=== PATIENT | female | born 1950 | race Caucasian/White ===

== ENCOUNTER → 2016-09-04 | Outpatient (CLI) | payer MEDICARE, OTHER ==
[~2016-09-04] MED LIST: ADV250INH INH; ALBU17IN INH; LEVO25TA5 PO; OMEP40CA2 PO; RALO1TAB PO; SING10TA32 PO; ZOCO20TA PO; ZYRT10TA2 PO
[2016-09-04 11:34] LABS: BASO % 0.7 % (0.0-1.0); EOS # 0.2 K/mm3 (0.0-0.50); EOS % 3.4 % (0.0-3.0); LARGE UNSTAINED CELL # 0.1 K/mm3 (0.0-0.4); LARGE UNSTAINED CELL % 1.5 % (0.0-4.0); LYMPH % 19.3 % (24.0-44.0); MEAN CORPUSCULAR HEMOGLOBIN 29.9 pg (27.0-33.0); MEAN CORPUSCULAR HGB CONC 32.8 g/dl (32.0-36.5); MEAN CORPUSCULAR VOLUME 90.9 fl (80.0-96.0); MONO # 0.3 K/mm3 (0.0-0.8); MONO % 5.8 % (0.0-5.0); NEUTROPHILS # 3.7 K/mm3 (1.8-7.7); NEUTROPHILS % 69.3 % (36.0-66.0); PLATELET COUNT, AUTOMATED 280 k/mm3 (150-450); WHITE BLOOD COUNT 5.4 K/mm3 (4.0-10.0)
--- NOTE | 2016-09-04 12:15 | REP ---
Chest two views HISTORY: Preop Comparison: 10/27/2015 Linear density is present in the left lower lobe consistent with scar. The right lung is clear. . The heart is normal in size. The pulmonary vasculature is normal in appearance. The bony structure is intact. IMPRESSION: Left lower lobe scar. Signed by Feliberto Randall MD 09/04/2016 12:07 P
[2016-09-04 12:20] LABS: ALBUMIN 3.9 GM/DL (3.2-5.2); ALBUMIN/GLOBULIN RATIO 1.22 (1.00-1.93); ALKALINE PHOSPHATASE 103 U/L (45-117); ALT/SGPT 34 U/L (12-78); ANION GAP 10 MEQ/L (8-16); AST/SGOT 20 U/L (15-37); BILIRUBIN,TOTAL 0.5 MG/DL (0.2-1.0); BLOOD UREA NITROGEN 20 MG/DL (7-18); CALCIUM LEVEL 9.5 MG/DL (8.8-10.2); CARBON DIOXIDE LEVEL 28 MEQ/L (21-32); CHLORIDE LEVEL 105 MEQ/L (98-107); CREATININE FOR GFR 0.91 MG/DL (0.55-1.02); GLOMERULAR FILTRATION RATE > 60.0 (>45); GLUCOSE, FASTING 97 MG/DL (80-110); POTASSIUM SERUM 3.7 MEQ/L (3.5-5.1); SODIUM LEVEL 143 MEQ/L (136-145); TOTAL PROTEIN 7.1 GM/DL (6.4-8.2)
--- NOTE | 2016-09-04 12:37 | ECGEPIP ---
Stationary ECG Study [facility] Test Date: 2016-09-04 Pat Name: DARYN PEREZ Department: Room: - Gender: F Fire Engine Operator: AURA : 1950 Requested By: Neri Voss Order Number: [id number] Reading MD: Janie Reyes Measurements Intervals [place] Rate: 71 P: 66 CA: 133 QRS: 34 QRSD: 90 T: 59 QT: 355 QTc: 387 Interpretive Statements SINUS RHYTHM WITH SINUS ARRHYTHMIA INFERIOR ST ABNORMALITY NEW C/W 07/12/11 Electronically Signed On 09-04-2016 12:36:46 EST by Janie Reyes
== END ==
LOC: M LAB 10:46
PROVIDERS: ATTEND Podiatrist
DX: Z01.818 Encounter for other preprocedural examination (principal)

== ENCOUNTER → 2016-09-14 | Day surgery (SDC) | payer MEDICARE, OTHER ==
[~2016-09-14] VITALS: Ht 157.5 cm; Wt 68.0 kg
[~2016-09-14] MED LIST changes: +BUPIVACAINE HCL 0.5% 10 ML VIAL As Ordered ONE; +LIDOCAINE 2% INJ 100 MG/5 ML SDV (FOR ANES.) As Ordered ONE; +LIDOCAINE 2% MDV 20 ML VIAL XX ONE; +LR 1,000 ML IV SCH; +MIDAZOLAM INJ 2 MG/2 ML VIAL (J2250) As Ordered ONE; +ONDANSETRON 4MG/2ML VIAL (J2405) As Ordered ONE; +PHENYLephrine HCL 500 MCG/5 ML (100MCG/ML) SYRINGE (J2370) As Ordered ONE; +PROPOFOL 200 MG/20 ML VIAL As Ordered ONE; +VERA27.5; +ceFAZolin SOD 1 GM in D5W MINI-BAG PLUS 50 ML IV ONE; +dexameTHASONE 4 MG/ML 1ML VIAL (J1100) As Ordered ONE; +fentaNYL 100 MCG/2 ML INJECTION (J3010) As Ordered ONE
[2016-09-14 13:20] VITALS: BP 120/89
--- NOTE | 2016-09-14 13:32 | REP ---
Left foot series: Four views obtained postop. History: Postop. Findings: Views taken through overlying dressing demonstrate that the patient is status post osteotomies and pinning of the second, third and fourth PIP joints. Metallic screws are seen in the second, third, fourth and fifth metatarsals consistent with previous osteotomies here. There is also resection of the distal end of the proximal phalanx of the fifth toe. No pin is seen in the fifth digit. 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 Impression: Postoperative changes in the second through fifth digits as above. Signed by Marcello Tom MD 09/14/2016 02:05 P
--- NOTE | 2016-09-16 09:30 | RO ---
DATE OF PROCEDURE: 09/14/2016 PREOPERATIVE DIAGNOSIS: Hammertoes with crossover toes 2, 3, 4 and 5, left foot. POSTOPERATIVE DIAGNOSIS: Hammertoes with crossover toes 2, 3, 4 and 5. PROCEDURES PERFORMED: 1. Shortening 2nd metatarsal osteotomy with internal screw fixation. 2. Shortening 3rd metatarsal osteotomy with slight lateral displacement with internal screw fixation. 3. 4th metatarsal osteotomy with medial displacement with internal screw fixation. 4. Tailor's bunionectomy with distal V osteotomy, internal screw fixation. 5. Proximal interphalageal joint arthroplasty with K-wire fixation, 0.045 times one, 2nd toe, left foot. 6. Proximal interphalangeal joint arthroplasty with wire fixation 0.045 times one, 3rd toe left foot. 7. Proximal interphalangeal joint arthroplasty 4th toe, with hosiery mater wire fixation, 4th toe left foot. 8. Proximal interphalangeal joint arthroplasty 5th toe, left foot. SURGEON: Neri Voss DPM [employer] REMOVAL SUPERVISOR: None. HEMOSTASIS: Ankle pneumatic tourniquet at 220 mmHg for 105 minutes. DESCRIPTION OF OPERATION: On 09/14/2016, this 66-year-old white female was taken from her hospital room to the operating room, placed on the operating room table in supine position. Following the induction of IV sedation, local and regional anesthesia, the left lower extremity was prepped and draped in the usual aseptic manner. The left lower extremity was elevated 45 degrees from the horizontal plane for the purpose of preoperative exsanguination of the limb. During this 3 minute time period, ankle pneumatic tourniquet was applied just proximal to the medial and lateral malleolus well padded site. To further exsanguinate the limb, a Ruddy's esmarch bandage was placed circumferentially extending from the digits to the distal edge of the ankle pneumatic tourniquet. The ankle pneumatic tourniquet was rapidly inflated to 220 mmHg for the purpose of intraoperative hemostasis. The left lower extremity was returned to the operating room table, sterile draping was place and the following procedure was performed: PROXIMAL INTERPHALANGEAL JOINT ARTHROPLASTY WITH EXTERNAL WIRE FIXATION, 2ND DOES LEFT FOOT: Attention was directed to the patient's 2nd toe where an incision was made from the metatarsal phalangeal joint to just distal to the proximal interphalangeal joint. The incision was deepened through the subcutaneous tissues and all coursing venous tributaries were identified, underscored, clamped, cut, ligated, and electrocoagulated as necessary. A transverse tenotomy and capsulotomy was performed at the level of the proximal interphalangeal joint and the extensor expansion and ortega was released into the level of the metatarsal phalangeal joint. The medial and lateral collateral ligaments were then resected and utilizing a power saw, an osteotomy was performed from the anatomical neck of the proximal phalanx from dorsal to plantar and medial to lateral through and through. Utilizing a power saw, the cartilage was removed from the base of the middle phalanx. This was extirpated from the wound. The second toe was noted to be in a considerably medial position and a release of the capsule was then performed releasing the entire medial structures, reducing the medial position of the toe. The following procedure was then performed: 2ND METATARSAL OSTEOTOMY WITH INTERNAL SCREW FIXATION 2.5 X 14 MM TIMES ONE LEFT FOOT: Attention was directed to the patient's 2nd metatarsal where a linear periosteal incision was placed above the periosteum of the neck of the second metatarsal. Utilizing a power saw a Keke osteotomy was performed through the head of the 2nd metatarsal paralleling the plantar surface of the foot. The bone was shortened approximately 4 mm and fixated with a 2.5 x 14 mm right DART-FIRE compression screw. Redundant cortical spike was then rongeured off and smoothed with a hand held rasp. The wound was flushed with copious amounts of dilute bacitracin, neomycin and polymyxin B solution. The 2nd toe was then repaired with a K-wire driven through the middle and distal phalanx, through the proximal phalanx and the toe was held in a slightly over corrected plantar position and retrograded into the metatarsal. The wire was bent and a protective cap was placed over the distal end of the K-wire. Attention was then directed to the patient 's 3rd toe of the left where the following procedure was performed: PROXIMAL INTERPHALANGEAL JOINT ARTHROPLASTY WITH EXTERNAL WIRE FIXATION 3RD TOE LEFT FOOT: The procedure performed on the 2nd toe was now performed on the 3rd toe without variations or deletions, the only exception being that of anatomical location. Attention was then directed to the 3rd metatarsal of the left foot where the following procedure was performed: 3RD METATARSAL OSTEOTOMY WITH INTERNAL SCREW FIXATION 2.5 MM X 12 MM TIMES ONE, LEFT FOOT: Attention was directed to the patient's 3rd metatarsal left foot where the procedure performed on the 2nd metatarsal was now performed on the 3rd metatarsal with the following variation: The toe was shorted as well as placed in a lateral direction. There was no other variations or deletions. Attention was hen directed to the patient's 4th toe of the left foot where the following procedure was performed: PROXIMAL INTERPHALANGEAL JOINT ARTHROPLASTY WITH EXTERNAL WIRE FIXATION 0.045 TIMES ONE, 4TH TOE LEFT FOOT: Attention was directed to the patient's 4th toe of the left foot where the procedure performed on the 2nd toe was now performed on the 4th toe without variations or deletions, the only exception being that of anatomical location. Attention was then directed to the patient's 4th metatarsal where the following procedure was performed: SHORTENING 4TH METATARSAL OSTEOTOMY WITH MEDIAL DISPLACEMENT, 4TH METATARSAL LEFT FOOT: The procedure performed on the 2nd metatarsal was now performed on the 4th metatarsal with the following variation: The metatarsal was displaced in a medial direction. No other variations or deletions. Attention was then directed to the patient's 5th toe where the procedure was performed: PROXIMAL INTERPHALANGEAL JOINT ARTHROPLASTY 5TH TOE LEFT FOOT: Attention was directed to the patient's 5th toe of the left foot. The procedure performed on the 2nd toe was now performed on the 5th toe with the following variation: No K-wire was used to stabilize the 5th toe. Attention was then directed to the patient's 5th metatarsal where the following procedure was performed: TAILOR'S BUNIONECTOMY WITH DISTAL V OSTEOTOMY AND INTERNAL SCREW FIXATION 2.5 X 18 MM TIMES ONE, LEFT FOOT: Attention was directed to the patient's left foot where there was noted to be tailors bunion deformity. A lateral linear incision was then placed over the lateral aspect of the 5th metatarsal phalangeal joint. The incision was deepened through subcutaneous tissues and all coursing venous tributaries were identified, underscored, clamped, cut, ligated, and electrocoagulated as necessary. A linear capsulotomy was then performed over the 5th metatarsal phalangeal joint capsule. The hypertrophied lateral eminence was then osteotomized from distal to proximal, through and through. A V shaped osteotomy was then performed in the neck of the 5th metatarsal with a long plantar and short dorsal wing. The capital fragment was transposed in a medial direction, approximately 30%, fixated with 2.5 x 18 mm compression screw. The osteotomy was noted to be stable in all three cardinal planes. The redundant cortical spike was then osteotomized from dorsal to plantar, through and through. The lateral surface was rasped to smooth contour with a handheld rasp. The wound was flushed with copious amounts of dilute bacitracin, neomycin, and polymyxin B solution. Attention was directed towards closure where the capsular structures were coapted and maintained utilizing #3-0 Vicryl in a simple interrupted type fashion. The subcutaneous tissues were coapted and maintained utilizing #4-0 Monocryl in a simple interrupted type fashion. The skin incision was coapted and maintained utilizing #4-0 Prolene in a simple interrupted and horizontal mattress type fashion. Following the completion of the surgical procedure, 4 mg of dexamethasone sodium phosphate was instilled proximal to the surgical site. Attention was then directed towards bandaging where a sterile compressive bandage was applied consisting of Adaptic, 4x4's, 4x4 splints, Kaylin, Kerlix, and Coban. The ankle pneumatic tourniquet was rapidly deflated and instantaneous capillary filling time was noted in digits 1-5 of the patient's right foot. The patient apparently having tolerated the surgical procedure well was taken from the OR to the recovery room with vital signs stable, patient afebrile, and for further monitoring by the anesthesia department. All surgical specimens removed during the operative procedure were sent to pathology for gross and microscopic examination. Postoperative instructions will be given upon discharge.
== END | disposition home or self-care (01) ==
LOC: M SDC 07:29
PROVIDERS: ATTEND Podiatrist
DX: M20.42 Other hammer toe(s) (acquired), left foot (principal); E03.9 Hypothyroidism, unspecified; E78.5 Hyperlipidemia, unspecified; Z88.1 Allergy status to other antibiotic agents; Z79.899 Other long term (current) drug therapy
CPT/HCPCS: 28110; 28285; 28308; 73630; 88300; 97116; C1776; G8978; G8979; G8980; J0690; J1100; J2250; J2370; J2405; J3010

== ENCOUNTER → 2017-01-14 | Outpatient (CLI) | payer MEDICARE, OTHER ==
[~2017-01-14] MED LIST changes: -BUPIVACAINE HCL 0.5% 10 ML VIAL As Ordered ONE; -LIDOCAINE 2% INJ 100 MG/5 ML SDV (FOR ANES.) As Ordered ONE; -LIDOCAINE 2% MDV 20 ML VIAL XX ONE; -LR 1,000 ML IV SCH; -MIDAZOLAM INJ 2 MG/2 ML VIAL (J2250) As Ordered ONE; -ONDANSETRON 4MG/2ML VIAL (J2405) As Ordered ONE; -PHENYLephrine HCL 500 MCG/5 ML (100MCG/ML) SYRINGE (J2370) As Ordered ONE; -PROPOFOL 200 MG/20 ML VIAL As Ordered ONE; -ceFAZolin SOD 1 GM in D5W MINI-BAG PLUS 50 ML IV ONE; -dexameTHASONE 4 MG/ML 1ML VIAL (J1100) As Ordered ONE; -fentaNYL 100 MCG/2 ML INJECTION (J3010) As Ordered ONE
[2017-01-14 10:48] LABS: ALBUMIN 3.7 GM/DL (3.2-5.2); ALBUMIN/GLOBULIN RATIO 1.37 (1.00-1.93); ALKALINE PHOSPHATASE 96 U/L (45-117); ALT/SGPT 20 U/L (12-78); ANION GAP 8 MEQ/L (8-16); AST/SGOT 15 U/L (15-37); BILIRUBIN,TOTAL 0.3 MG/DL (0.2-1.0); BLOOD UREA NITROGEN 16 MG/DL (7-18); CALCIUM LEVEL 8.8 MG/DL (8.8-10.2); CARBON DIOXIDE LEVEL 28 MEQ/L (21-32); CHLORIDE LEVEL 107 MEQ/L (98-107); CHOLESTEROL LEVEL 160 MG/DL (<200); CREATININE FOR GFR 0.68 MG/DL (0.55-1.02); GLOMERULAR FILTRATION RATE > 60.0 (>45); GLUCOSE, FASTING 85 MG/DL (80-110); MAGNESIUM LEVEL 2.5 MG/DL (1.8-2.4); POTASSIUM SERUM 4.4 MEQ/L (3.5-5.1); SODIUM LEVEL 143 MEQ/L (136-145); TOTAL PROTEIN 6.4 GM/DL (6.4-8.2); TRIGLYCERIDES LEVEL 85 MG/DL (<150)
== END ==
LOC: M WUC 08:23
PROVIDERS: ATTEND Internal Medicine
DX: E78.00 Pure hypercholesterolemia, unspecified (principal); K21.9 Gastro-esophageal reflux disease without esophagitis; E03.9 Hypothyroidism, unspecified

== ENCOUNTER → 2017-08-20 | Outpatient (CLI) | payer MEDICARE, OTHER ==
[2017-08-20 10:25] LABS: BASO % 0.8 % (0.0-1.0); EOS # 0.2 10^3/uL (0.0-0.50); EOS % 4.3 % (0.0-3.0); HEMATOCRIT 41.2 % (36.0-47.0); HEMOGLOBIN 13.2 g/dl (12.0-16.0); IMMATURE GRANULOCYTE % 0.2 % (0-3.0); LYMPH # 1.3 10^3/uL (1.5-4.5); LYMPH % 25.8 % (24.0-44.0); MEAN CORPUSCULAR HEMOGLOBIN 25.7 pg (27.0-33.0); MEAN CORPUSCULAR VOLUME 80.2 fl (80.0-96.0); MONO # 0.5 10^3/uL (0.0-0.8); MONO % 9.6 % (0.0-5.0); NEUTROPHILS # 2.9 10^3/uL (1.8-7.7); NEUTROPHILS % 59.3 % (36.0-66.0); PLATELET COUNT, AUTOMATED 265 10^3/uL (150-450); RED BLOOD COUNT 5.14 10^6/uL (4.00-5.40); RED CELL DISTRIBUTION WIDTH 16.7 % (11.5-14.5); WHITE BLOOD COUNT 4.9 10^3/uL (4.0-10.0)
[2017-08-20 10:42] LABS: ANION GAP 7 MEQ/L (8-16); BLOOD UREA NITROGEN 20 MG/DL (7-18); CALCIUM LEVEL 8.6 MG/DL (8.8-10.2); CARBON DIOXIDE LEVEL 30 MEQ/L (21-32); CHLORIDE LEVEL 107 MEQ/L (98-107); GLOMERULAR FILTRATION RATE > 60.0 (>45); GLUCOSE, FASTING 92 MG/DL (70-100); POTASSIUM SERUM 4.1 MEQ/L (3.5-5.1); SODIUM LEVEL 144 MEQ/L (136-145)
== END ==
LOC: M LAB 09:40
DX: Z01.818 Encounter for other preprocedural examination (principal); T84.223A Displacement of internal fixation device of bones of foot and toes, initial encounter; L90.5 Scar conditions and fibrosis of skin; I51.7 Cardiomegaly
CPT/HCPCS: 71046

== ENCOUNTER 2017-08-28 08:39 | Day surgery (SDC) | payer MEDICARE, OTHER ==
[2017-08-28] MEDS: LR 1,000 ML IV ×2 (08:45→09:30)
[2017-08-28] MEDS ORDERED: LIDOCAINE 2% INJ 100 MG/5 ML SDV (FOR ANES.) As Ordered (11:09)
[2017-08-28] MEDS ORDERED: PROPOFOL 200 MG/20 ML VIAL As Ordered (11:09)
[2017-08-28] MEDS ORDERED: MIDAZOLAM INJ 2 MG/2 ML VIAL (J2250) As Ordered (11:10)
[2017-08-28] MEDS ORDERED: fentaNYL 100 MCG/2 ML INJECTION (J3010) As Ordered (11:10)
[2017-08-28] MEDS: LIDOCAINE 2% MDV 20 ML VIAL As Ordered (12:45)
[2017-08-28] MEDS: dexameTHASONE 4 MG/ML 1ML VIAL (J1100) As Ordered (12:45)
[2017-08-28] MEDS: BUPIVACAINE HCL 0.5% 30 ML VIAL As Ordered (12:45)
[2017-08-28] MEDS: BACITRACIN PWD 50,000 UNITS VIAL As Ordered (12:45)
[2017-08-28] MEDS: NEOSPORIN GU IRRIG 20 ML VIAL As Ordered (12:45)
[2017-08-28] MEDS ORDERED: LR 1,000 ML IV (13:45)
[2017-08-28] MEDS ORDERED: NORCO, ANEXSIA 5/325MG TABLET (HYDROcodone/ACETAMINOPHEN) PO (13:45)
[2017-08-28] MEDS ORDERED: ONDANSETRON 4MG/2ML VIAL (J2405) IV (13:45)
== END 2017-08-28 14:00 | disposition home or self-care (01) ==
LOC: M SDC 08:39
DX: T84.84XA Pain due to internal orthopedic prosthetic devices, implants and grafts, initial encounter (principal); T84.223A Displacement of internal fixation device of bones of foot and toes, initial encounter; E03.9 Hypothyroidism, unspecified; M12.9 Arthropathy, unspecified; J45.909 Unspecified asthma, uncomplicated; M72.2 Plantar fascial fibromatosis; M20.62 Acquired deformities of toe(s), unspecified, left foot; M20.42 Other hammer toe(s) (acquired), left foot; Z88.1 Allergy status to other antibiotic agents; Z91.048 Other nonmedicinal substance allergy status; Z79.899 Other long term (current) drug therapy; Z78.0 Asymptomatic menopausal state; X58.XXXA Exposure to other specified factors, initial encounter; Y93.89 Activity, other specified; Y92.89 Other specified places as the place of occurrence of the external cause; Y99.8 Other external cause status
CPT/HCPCS: 20670

== ENCOUNTER → 2018-01-11 | Outpatient (CLI) | payer MEDICARE, OTHER ==
[2018-01-11 17:26] LABS: ALBUMIN 3.7 GM/DL (3.2-5.2); ALBUMIN/GLOBULIN RATIO 1.16 (1.00-1.93); ALKALINE PHOSPHATASE 101 U/L (45-117); ALT/SGPT 24 U/L (12-78); ANION GAP 9 MEQ/L (8-16); AST/SGOT 18 U/L (7-37); BILIRUBIN,TOTAL 0.4 MG/DL (0.2-1.0); BLOOD UREA NITROGEN 18 MG/DL (7-18); CALCIUM LEVEL 8.5 MG/DL (8.8-10.2); CARBON DIOXIDE LEVEL 26 MEQ/L (21-32); CHLORIDE LEVEL 107 MEQ/L (98-107); CHOLESTEROL LEVEL 178 MG/DL (<200); CHOLESTEROL RISK RATIO 2.225 (<5); CREATININE FOR GFR 0.71 MG/DL (0.55-1.30); GLOMERULAR FILTRATION RATE > 60.0 (>45); GLUCOSE, FASTING 93 MG/DL (70-100); HDL CHOLESTEROL 80 MG/DL (>40); LDL CHOLESTEROL 87.8 MG/DL (<100); MAGNESIUM LEVEL 2.1 MG/DL (1.8-2.4); NON-HDL-C 98 MG/DL; POTASSIUM SERUM 4.1 MEQ/L (3.5-5.1); SODIUM LEVEL 142 MEQ/L (136-145); TOTAL PROTEIN 6.9 GM/DL (6.4-8.2); TRIGLYCERIDES LEVEL 51 MG/DL (<150)
== END ==
LOC: M WUC 08:32
DX: K21.9 Gastro-esophageal reflux disease without esophagitis (principal); E78.00 Pure hypercholesterolemia, unspecified; E03.9 Hypothyroidism, unspecified
CPT/HCPCS: 83735

== ENCOUNTER 2018-05-02 11:01 | Day surgery (SDC) | payer MEDICARE, OTHER ==
[~2018-05-02 11:01] MED LIST changes: -ADV250INH INH; -ALBU17IN INH; -LEVO25TA5 PO; +LIDOCAINE 2% INJ 100 MG/5 ML SDV (FOR ANES.) As Ordered; -OMEP40CA2 PO; +PROPOFOL 200 MG/20 ML VIAL As Ordered; -RALO1TAB PO; -SING10TA32 PO; -VERA27.5; -ZOCO20TA PO; -ZYRT10TA2 PO
[2018-05-02] MEDS: NS 1,000 ML IV (12:45)
== END 2018-05-02 13:00 | disposition home or self-care (01) ==
LOC: M OPP 11:01
DX: Z12.11 Encounter for screening for malignant neoplasm of colon (principal); Z86.010 Personal history of colon polyps; D12.4 Benign neoplasm of descending colon; D12.3 Benign neoplasm of transverse colon; K64.8 Other hemorrhoids; R12 Heartburn; K21.9 Gastro-esophageal reflux disease without esophagitis; E03.9 Hypothyroidism, unspecified; J45.909 Unspecified asthma, uncomplicated; M12.9 Arthropathy, unspecified; L71.0 Perioral dermatitis; Z79.899 Other long term (current) drug therapy; Z88.8 Allergy status to other drugs, medicaments and biological substances; Z88.0 Allergy status to penicillin; Z91.048 Other nonmedicinal substance allergy status
CPT/HCPCS: 45385

== ENCOUNTER → 2018-06-02 | Outpatient (CLI) | payer MEDICARE, OTHER ==
[2018-06-02 13:25] LABS: CHOLESTEROL LEVEL 287 MG/DL (<200); CHOLESTEROL RISK RATIO 3.776 (<5); HDL CHOLESTEROL 76 MG/DL (>40); LDL CHOLESTEROL 190 MG/DL (<100); NON-HDL-C 211 MG/DL; TRIGLYCERIDES LEVEL 105 MG/DL (<150)
== END ==
LOC: M WUC 09:08
DX: E78.00 Pure hypercholesterolemia, unspecified (principal); E03.9 Hypothyroidism, unspecified
CPT/HCPCS: 84443

== ENCOUNTER → 2018-10-06 | Outpatient (CLI) | payer MEDICARE, OTHER ==
[~2018-10-06] MED LIST changes: +ADV250INH INH; +ALBU17IN INH; +CALC1TAB63 PO; +CENTCHW4 PO; +FISH120016 PO; +FLON1SPR; +LEVO25TA5 PO; +LEVO75TA4 PO; -LIDOCAINE 2% INJ 100 MG/5 ML SDV (FOR ANES.) As Ordered; +META0.52 PO; +METRCRM TOP; +OMEP40CA2 PO; +OSTETAB2 PO; -PROPOFOL 200 MG/20 ML VIAL As Ordered; +RALO1TAB PO; +REFR0.5D8 OU; +SING10TA32 PO; +TURM500T PO; +VENTAER INH; +VERA27.5; +VITA100067 PO; +VITA50TA43 PO; +ZOCO20TA PO; +ZYRT10CA5 PO; +[UNRECOGNIZED DRUG - CODE]; +[UNRECOGNIZED DRUG - OTHER]
--- NOTE | 2018-10-06 10:59 | REP ---
BILATERAL FIRST DIGITS: Four views of right first digit performed. There is no fracture or dislocation. There is moderate narrowing with subchondral sclerosis of the joint between the trapezium and base of the first metacarpal. There is moderate diffuse narrowing of the distal interphalangeal joint with mild spurring and subchondral sclerosis. Four views of the left first digit demonstrate no fracture or dislocation. There is moderate narrowing at the joint between trapezium and base of first metacarpal with subchondral sclerosis. There is moderate narrowing of the distal interphalangeal joint with mild subchondral sclerosis. IMPRESSION: Arthritic changes as above. Electronically Signed by Jt Kaiser MD 10/06/2018 06:19 P
== END ==
LOC: M WUC 09:56
PROVIDERS: ATTEND Physician Assistant
DX: M19.049 Primary osteoarthritis, unspecified hand (principal)

== ENCOUNTER → 2019-01-12 | Outpatient (CLI) | payer MEDICARE, OTHER ==
[~2019-01-12] MED LIST changes: -OMEP40CA2 PO; +OMEP40CA97 PO
[2019-01-12 12:32] LABS: HEMATOCRIT 40.7 % (36.0-47.0); HEMOGLOBIN 12.9 g/dl (12.0-15.5); MEAN CORPUSCULAR HEMOGLOBIN 25.3 pg (27.0-33.0); MEAN CORPUSCULAR HGB CONC 31.7 g/dl (32.0-36.5); PLATELET COUNT, AUTOMATED 310 10^3/uL (150-450); RED BLOOD COUNT 5.09 10^6/uL (4.00-5.40); WHITE BLOOD COUNT 5.6 10^3/uL (4.0-10.0)
[2019-01-12 12:47] LABS: ALBUMIN 4.1 GM/DL (3.2-5.2); ALT/SGPT 102 U/L (12-78); BILIRUBIN,TOTAL 0.7 MG/DL (0.2-1.0); BLOOD UREA NITROGEN 23 MG/DL (7-18); CALCIUM LEVEL 9.3 MG/DL (8.8-10.2); CARBON DIOXIDE LEVEL 25 MEQ/L (21-32); CHLORIDE LEVEL 106 MEQ/L (98-107); CHOLESTEROL LEVEL 233 MG/DL (<200); CHOLESTEROL RISK RATIO 2.452 (<5); CREATININE FOR GFR 0.76 MG/DL (0.55-1.30); GLOMERULAR FILTRATION RATE > 60.0 (>45); GLUCOSE, FASTING 97 MG/DL (70-100); HDL CHOLESTEROL 95 MG/DL (>40); LDL CHOLESTEROL 127 MG/DL (<100); NON-HDL-C 138 MG/DL; SODIUM LEVEL 140 MEQ/L (136-145); TOTAL PROTEIN 7.3 GM/DL (6.4-8.2); TRIGLYCERIDES LEVEL 54 MG/DL (<150)
[2019-01-12 13:23] LABS: TOTAL 25(OH) VITAMIN D 66.9 NG/ML (30.0-100.0)
== END ==
LOC: M WUC 09:40
PROVIDERS: ATTEND Internal Medicine
DX: R71.8 Other abnormality of red blood cells (principal); E78.00 Pure hypercholesterolemia, unspecified; E03.9 Hypothyroidism, unspecified; M85.80 Other specified disorders of bone density and structure, unspecified site

== ENCOUNTER → 2019-01-29 | Outpatient (CLI) | payer MEDICARE, OTHER ==
[~2019-01-29] MED LIST changes: +OMEP40CA2 PO; -OMEP40CA97 PO
[2019-01-29 13:59] LABS: ALBUMIN 4.1 GM/DL (3.2-5.2); BILIRUBIN,DIRECT 0.1 MG/DL (0.0-0.2); BILIRUBIN,TOTAL 0.5 MG/DL (0.2-1.0); TOTAL PROTEIN 7.4 GM/DL (6.4-8.2)
== END ==
LOC: M WUC 09:01
PROVIDERS: ATTEND Internal Medicine
DX: R74.0 Nonspecific elevation of levels of transaminase and lactic acid dehydrogenase [LDH] (principal)

== ENCOUNTER → 2020-01-11 | Outpatient (CLI) | payer MEDICARE, OTHER ==
[~2020-01-11] MED LIST changes: -OMEP40CA2 PO; +OMEP40CA97 PO
[2020-01-11 13:39] LABS: HEMATOCRIT 44.6 % (36.0-47.0); HEMOGLOBIN 14.5 g/dl (12.0-15.5); MEAN CORPUSCULAR HEMOGLOBIN 30.1 pg (27.0-33.0); MEAN CORPUSCULAR HGB CONC 32.5 g/dl (32.0-36.5); MEAN CORPUSCULAR VOLUME 92.5 fl (80.0-96.0); PLATELET COUNT, AUTOMATED 236 10^3/uL (150-450); RED BLOOD COUNT 4.82 10^6/uL (4.00-5.40); WHITE BLOOD COUNT 4.5 10^3/uL (4.0-10.0)
[2020-01-11 14:06] LABS: ALBUMIN 3.9 GM/DL (3.2-5.2); ALT/SGPT 57 U/L (12-78); BILIRUBIN,TOTAL 0.4 MG/DL (0.2-1.0); BLOOD UREA NITROGEN 14 MG/DL (7-18); CALCIUM LEVEL 8.6 MG/DL (8.8-10.2); CARBON DIOXIDE LEVEL 25 MEQ/L (21-32); CHLORIDE LEVEL 108 MEQ/L (98-107); CHOLESTEROL LEVEL 199 MG/DL (<200); CHOLESTEROL RISK RATIO 2.618 (<5); CREATININE FOR GFR 0.58 MG/DL (0.55-1.30); FERRITIN 95 NG/ML (8-252); GLOMERULAR FILTRATION RATE > 60.0 (>39); GLUCOSE, FASTING 86 MG/DL (70-100); HDL CHOLESTEROL 76 MG/DL (>40); IRON (FE) 169 UG/DL (50-170); LDL CHOLESTEROL 110 MG/DL (<100); NON-HDL-C 123 MG/DL; PERCENT SATURATION 62.4 % (13.2-45.0); POTASSIUM SERUM 3.7 MEQ/L (3.5-5.1); SODIUM LEVEL 141 MEQ/L (136-145); THYROID STIMULATING HORMONE 0.346 uIU/ML (0.358-3.740); TOTAL IRON BINDING CAPACITY 271 UG/DL (250-450); TOTAL PROTEIN 6.8 GM/DL (6.4-8.2); TRIGLYCERIDES LEVEL 65 MG/DL (<150)
== END ==
LOC: M WUC 11:44
PROVIDERS: ATTEND Internal Medicine
DX: Z00.00 Encounter for general adult medical examination without abnormal findings (principal); R71.8 Other abnormality of red blood cells; E78.00 Pure hypercholesterolemia, unspecified; E03.9 Hypothyroidism, unspecified

== ENCOUNTER → 2021-01-16 | Outpatient (CLI) | payer MEDICARE, OTHER ==
[~2021-01-16] MED LIST changes: +OMEP40CA4 PO; -OMEP40CA97 PO
[2021-01-16 12:45] LABS: HEMOGLOBIN 14.4 g/dl (12.0-15.5); MEAN CORPUSCULAR HEMOGLOBIN 29.6 pg (27.0-33.0); MEAN CORPUSCULAR VOLUME 92.4 fl (80.0-96.0); PLATELET COUNT, AUTOMATED 214 10^3/uL (150-450); RED BLOOD COUNT 4.87 10^6/uL (4.00-5.40); WHITE BLOOD COUNT 5.2 10^3/uL (4.0-10.0)
[2021-01-16 13:16] LABS: ALBUMIN 3.8 GM/DL (3.2-5.2); ALT/SGPT 118 U/L (12-78); BILIRUBIN,TOTAL 0.5 MG/DL (0.2-1.0); BLOOD UREA NITROGEN 14 MG/DL (7-18); CALCIUM LEVEL 8.2 MG/DL (8.8-10.2); CARBON DIOXIDE LEVEL 29 MEQ/L (21-32); CHLORIDE LEVEL 108 MEQ/L (98-107); CHOLESTEROL LEVEL 208 MG/DL (<200); CHOLESTEROL RISK RATIO 2.888 (<5); CREATININE FOR GFR 0.66 MG/DL (0.55-1.30); GLOMERULAR FILTRATION RATE > 60.0 (>39); GLUCOSE, FASTING 96 MG/DL (70-100); HDL CHOLESTEROL 72 MG/DL (>40); LDL CHOLESTEROL 98 MG/DL (<100); NON-HDL-C 136 MG/DL; SODIUM LEVEL 142 MEQ/L (136-145); TOTAL PROTEIN 6.6 GM/DL (6.4-8.2); TRIGLYCERIDES LEVEL 189 MG/DL (<150)
== END ==
LOC: M WUC 08:48
PROVIDERS: ATTEND Internal Medicine
DX: E03.9 Hypothyroidism, unspecified (principal); K21.9 Gastro-esophageal reflux disease without esophagitis; E78.00 Pure hypercholesterolemia, unspecified

== ENCOUNTER → 2021-02-14 | Outpatient (CLI) | payer MEDICARE, OTHER ==
[2021-02-14 13:16] LABS: BILIRUBIN,DIRECT 0.2 MG/DL (0.0-0.2); BILIRUBIN,TOTAL 0.6 MG/DL (0.2-1.0); TOTAL PROTEIN 6.9 GM/DL (6.4-8.2)
== END ==
LOC: M PLALAB 09:31
PROVIDERS: ATTEND Internal Medicine
DX: R74.01 Elevation of levels of liver transaminase levels (principal); Z23 Encounter for immunization

== ENCOUNTER → 2021-03-17 | Outpatient (REF) | payer MEDICARE, OTHER ==
[2021-03-17 17:20] LABS: ALBUMIN 3.7 GM/DL (3.2-5.2); BILIRUBIN,DIRECT 0.2 MG/DL (0.0-0.2); BILIRUBIN,TOTAL 0.6 MG/DL (0.2-1.0); TOTAL PROTEIN 6.5 GM/DL (6.4-8.2)
== END ==
LOC: M WUC 16:19
PROVIDERS: ATTEND Internal Medicine
DX: R79.89 Other specified abnormal findings of blood chemistry (principal)

== ENCOUNTER → 2021-05-19 | Outpatient (REF) | payer MEDICARE, OTHER | LOC: M SFHCPLAZ 10:03 | PROVIDERS: ATTEND Physician Assistant | DX: J02.9 Acute pharyngitis, unspecified (principal) | CPT/HCPCS: 87426; G0463; U0003 ==

== ENCOUNTER → 2021-05-22 | Outpatient (CLI) | payer MEDICARE, OTHER ==
[2021-05-22 14:20] LABS: ALBUMIN 3.9 GM/DL (3.2-5.2); BILIRUBIN,DIRECT 0.1 MG/DL (0.0-0.2); BILIRUBIN,TOTAL 0.5 MG/DL (0.2-1.0); TOTAL PROTEIN 6.9 GM/DL (6.4-8.2)
== END ==
LOC: M WUC 09:03
PROVIDERS: ATTEND Internal Medicine
DX: R79.89 Other specified abnormal findings of blood chemistry (principal)

== ENCOUNTER → 2021-06-07 | Outpatient (CLI) | payer MEDICARE, OTHER ==
[2021-06-07 16:16] LABS: HEMATOCRIT 44.8 % (36.0-47.0); HEMOGLOBIN 14.8 g/dl (12.0-15.5); MEAN CORPUSCULAR HEMOGLOBIN 29.5 pg (27.0-33.0); MEAN CORPUSCULAR VOLUME 89.2 fl (80.0-96.0); PLATELET COUNT, AUTOMATED 239 10^3/uL (150-450); RED BLOOD COUNT 5.02 10^6/uL (4.00-5.40); WHITE BLOOD COUNT 5.2 10^3/uL (4.0-10.0)
[2021-06-07 16:25] LABS: ALBUMIN 4.2 GM/DL (3.2-5.2); ALT/SGPT 70 U/L (12-78); BILIRUBIN,DIRECT 0.2 MG/DL (0.0-0.2); BILIRUBIN,TOTAL 0.5 MG/DL (0.2-1.0); IRON (FE) 124 UG/DL (50-170); PERCENT SATURATION 41.1 % (13.2-45.0); TOTAL IRON BINDING CAPACITY 302 UG/DL (250-450); TOTAL PROTEIN 7.4 GM/DL (6.4-8.2)
[2021-06-07 16:44] LABS: HEPATITIS B SURFACE ANTIGEN NEGATIVE (NEGATIVE)
[2021-06-07 17:11] LABS: HEPATITIS B CORE ANTIBODY IGM NEGATIVE (NEGATIVE); HEPATITIS C VIRUS ABY INDEX 0.1 INDEX (<0.8)
[2021-06-12 17:08] LABS: ANCA-ATYPICAL <1:20 titer (Neg:<1:20); ANTI-MITOCHONDRIAL ANTIBODY <20.0 Units (0.0-20.0); ANTINUCLEAR ANTIBODIES DIRECT Negative (Negative); CERULOPLASMIN 26.5 mg/dL (19.0-39.0); CYTOPLASMIC NEUTROP AB ANCA-C <1:20 titer (Neg:<1:20); LIVER-KIDNEY MICROSOMAL ABY <20.1 Units (0.0-20.0); PERINUCLEAR AB ANCA-P <1:20 titer (Neg:<1:20)
== END ==
LOC: M WUC 11:52
PROVIDERS: ATTEND Physician Assistant Medical
DX: R94.5 Abnormal results of liver function studies (principal)
CPT/HCPCS: 36415; 80076; 82390; 83550; 85027; 86038; 86255; 86256; 86376; 86705; 86709; 86803; 87340; G0463

== ENCOUNTER → 2021-06-15 | Outpatient (CLI) | payer MEDICARE, OTHER | LOC: M RAD 08:00 | PROVIDERS: ATTEND Physician Assistant Medical | DX: R94.5 Abnormal results of liver function studies (principal); K76.89 Other specified diseases of liver ==

== ENCOUNTER → 2021-07-18 | Outpatient (CLI) | payer MEDICARE, OTHER | LOC: M PLALAB 12:09 | PROVIDERS: ATTEND Nurse Practitioner Adult Health | DX: M50.30 Other cervical disc degeneration, unspecified cervical region (principal) ==

== ENCOUNTER → 2021-08-14 | Outpatient (CLI) | payer MEDICARE, OTHER ==
[2021-08-14 11:16] LABS: ALBUMIN 3.6 GM/DL (3.2-5.2); BILIRUBIN,DIRECT 0.2 MG/DL (0.0-0.2); BILIRUBIN,TOTAL 0.4 MG/DL (0.2-1.0); TOTAL PROTEIN 6.6 GM/DL (6.4-8.2)
== END ==
LOC: M WUC 08:19
DX: R94.5 Abnormal results of liver function studies (principal); Z79.899 Other long term (current) drug therapy

== ENCOUNTER → 2021-09-11 | Outpatient (CLI) | payer MEDICARE, OTHER | LOC: M RAD 06:19 | PROVIDERS: ATTEND Orthopaedic Surgery | DX: M25.78 Osteophyte, vertebrae (principal); M47.812 Spondylosis without myelopathy or radiculopathy, cervical region; M50.322 Other cervical disc degeneration at C5-C6 level ==

== ENCOUNTER → 2021-09-18 | Outpatient (CLI) | payer MEDICARE, OTHER ==
[~2021-09-18] MED LIST changes: +ADVA230A INH; +SIMV20TA22 PO
[2021-09-18 13:08] LABS: HEMATOCRIT 42.1 % (36.0-47.0); HEMOGLOBIN 13.7 g/dl (12.0-15.5); MEAN CORPUSCULAR HEMOGLOBIN 29.8 pg (27.0-33.0); MEAN CORPUSCULAR HGB CONC 32.5 g/dl (32.0-36.5); MEAN CORPUSCULAR VOLUME 91.7 fl (80.0-96.0); PLATELET COUNT, AUTOMATED 228 10^3/uL (150-450); RED BLOOD COUNT 4.59 10^6/uL (4.00-5.40); WHITE BLOOD COUNT 11.5 10^3/uL (4.0-10.0)
[2021-09-18 13:12] LABS: INR 0.95; PROTHROMBIN TIME 13.1 SECONDS (12.7-14.5)
[2021-09-18 13:50] LABS: BLOOD UREA NITROGEN 11 MG/DL (7-18); CREATININE FOR GFR 0.63 MG/DL (0.55-1.30); GLOMERULAR FILTRATION RATE > 60.0 (>39)
== END ==
LOC: M WUC 09:05
PROVIDERS: ATTEND Physician Assistant Medical
DX: R94.5 Abnormal results of liver function studies (principal)

== ENCOUNTER → 2021-09-22 | Outpatient (CLI) | payer MEDICARE, OTHER ==
[~2021-09-22] MED LIST changes: +ACETAMINOPHEN 325 MG TAB As Ordered ONE; +LIDOCAINE 1% MDV 20ML VIAL As Ordered ONE; +ONDANSETRON 4MG/2ML VIAL As Ordered ONE; +ONDANSETRON 4MG/2ML VIAL IV ONE
[2021-09-22 10:50] VITALS: BP 151/70
== END ==
LOC: M IRPRO 07:32
PROVIDERS: ATTEND Physician Assistant Medical
DX: K83.8 Other specified diseases of biliary tract (principal); R94.5 Abnormal results of liver function studies
CPT/HCPCS: 47000; 76942; 88305; J2405

== ENCOUNTER → 2021-09-29 | Outpatient (CLI) | payer MEDICARE, OTHER ==
[~2021-09-29] MED LIST changes: -ACETAMINOPHEN 325 MG TAB As Ordered ONE; -LIDOCAINE 1% MDV 20ML VIAL As Ordered ONE; -ONDANSETRON 4MG/2ML VIAL As Ordered ONE; -ONDANSETRON 4MG/2ML VIAL IV ONE; +PROHANCE 279.3MG/ML 15ML VIAL ONE
== END ==
LOC: M PLAIMG 08:30
PROVIDERS: ATTEND Physician Assistant Medical
DX: R94.5 Abnormal results of liver function studies (principal); K76.89 Other specified diseases of liver; D73.4 Cyst of spleen; R93.5 Abnormal findings on diagnostic imaging of other abdominal regions, including retroperitoneum
CPT/HCPCS: 74183; A9576

== ENCOUNTER → 2022-01-17 | Outpatient (CLI) | payer MEDICARE, OTHER ==
[~2022-01-17] MED LIST changes: -PROHANCE 279.3MG/ML 15ML VIAL ONE
[2022-01-17 13:27] LABS: BASO % 0.4 % (0.0-1.0); EOS # 0.2 10^3/uL (0.0-0.5); EOS % 4.5 % (0.0-3.0); HEMATOCRIT 46.9 % (36.0-47.0); HEMOGLOBIN 15.1 g/dl (12.0-15.5); LYMPH # 1.4 10^3/uL (1.5-5.0); LYMPH % 29.6 % (24.0-44.0); MEAN CORPUSCULAR HEMOGLOBIN 29.7 pg (27.0-33.0); MEAN CORPUSCULAR HGB CONC 32.2 g/dl (32.0-36.5); MEAN CORPUSCULAR VOLUME 92.3 fl (80.0-96.0); MONO # 0.6 10^3/uL (0.0-0.8); MONO % 11.7 % (2.0-8.0); NEUTROPHILS # 2.5 10^3/uL (1.5-8.5); NEUTROPHILS % 53.4 % (36.0-66.0); PLATELET COUNT, AUTOMATED 246 10^3/uL (150-450); RED BLOOD COUNT 5.08 10^6/uL (4.00-5.40); WHITE BLOOD COUNT 4.7 10^3/uL (4.0-10.0)
[2022-01-17 14:15] LABS: ALBUMIN 4.1 GM/DL (3.2-5.2); ALT/SGPT 60 U/L (12-78); BILIRUBIN,TOTAL 0.5 MG/DL (0.2-1.0); BLOOD UREA NITROGEN 18 MG/DL (7-18); CALCIUM LEVEL 9.6 MG/DL (8.8-10.2); CARBON DIOXIDE LEVEL 27 MEQ/L (21-32); CHLORIDE LEVEL 106 MEQ/L (98-107); CHOLESTEROL LEVEL 239 MG/DL (<200); CHOLESTEROL RISK RATIO 2.779 (<5); CREATININE FOR GFR 0.82 MG/DL (0.55-1.30); GLOMERULAR FILTRATION RATE > 60.0 (>39); GLUCOSE, FASTING 94 MG/DL (70-100); HDL CHOLESTEROL 86 MG/DL (>40); LDL CHOLESTEROL 130 MG/DL (<100); NON-HDL-C 153 MG/DL; POTASSIUM SERUM 4.5 MEQ/L (3.5-5.1); SODIUM LEVEL 141 MEQ/L (136-145); TOTAL PROTEIN 7.1 GM/DL (6.4-8.2); TRIGLYCERIDES LEVEL 115 MG/DL (<150)
== END ==
LOC: M WUC 08:46
PROVIDERS: ATTEND Internal Medicine
DX: J45.909 Unspecified asthma, uncomplicated (principal); E78.00 Pure hypercholesterolemia, unspecified; E03.9 Hypothyroidism, unspecified

== ENCOUNTER → 2022-04-24 | Outpatient (CLI) | payer MEDICARE, OTHER ==
[~2022-04-24] MED LIST changes: +SIMV-253 PO; -ZOCO20TA PO
[2022-04-24 11:42] LABS: ALBUMIN 3.5 GM/DL (3.2-5.2); BILIRUBIN,DIRECT 0.2 MG/DL (0.0-0.2); BILIRUBIN,TOTAL 0.4 MG/DL (0.2-1.0); CHOLESTEROL RISK RATIO 3.875 (<5); TOTAL PROTEIN 6.8 GM/DL (6.4-8.2)
== END ==
LOC: M WUC 08:19
PROVIDERS: ATTEND Internal Medicine Hematology
DX: E78.00 Pure hypercholesterolemia, unspecified (principal)

== ENCOUNTER → 2022-07-04 | Outpatient (CLI) | payer MEDICARE, OTHER ==
[2022-07-04 10:59] LABS: ALBUMIN 3.7 G/DL (3.2-5.2); BILIRUBIN,DIRECT 0.2 MG/DL (<0.4); BILIRUBIN,TOTAL 0.6 MG/DL (0.3-1.2); CHOLESTEROL RISK RATIO 2.87 (<5); HDL CHOLESTEROL 67.5 MG/DL (>40); LDL CHOLESTEROL 101.1 MG/DL (<100); TOTAL PROTEIN 6.5 G/DL (5.7-8.2)
== END ==
LOC: M WUC 08:22
PROVIDERS: ATTEND Internal Medicine Hematology
DX: E78.00 Pure hypercholesterolemia, unspecified (principal)

== ENCOUNTER → 2022-08-08 | Outpatient (CLI) | payer MEDICARE, OTHER ==
[~2022-08-08] MED LIST changes: +ALIR75PE3 SC; +APPL300T4 PO; +BETA5CR EXT; +HYDR0.2C21 EXT; +PRED10TA2; +TUMERIC ROOT PO; +URSO300C3 PO; +VITA100093 PO; +[UNRECOGNIZED DRUG - CODE] EXT
[2022-08-08 12:12] LABS: BASO % 0.6 % (0.0-1.0); EOS # 0.2 10^3/uL (0.0-0.5); HEMATOCRIT 46.9 % (36.0-47.0); HEMOGLOBIN 15.4 g/dl (12.0-15.5); LYMPH % 37.7 % (24.0-44.0); MEAN CORPUSCULAR HEMOGLOBIN 30.8 pg (27.0-33.0); MEAN CORPUSCULAR HGB CONC 32.8 g/dl (32.0-36.5); MEAN CORPUSCULAR VOLUME 93.8 fl (80.0-96.0); MONO # 0.6 10^3/uL (0.0-0.8); MONO % 12.1 % (2.0-8.0); NEUTROPHILS # 2.5 10^3/uL (1.5-8.5); PLATELET COUNT, AUTOMATED 293 10^3/uL (150-450); WHITE BLOOD COUNT 5.3 10^3/uL (4.0-10.0)
[2022-08-08 12:40] LABS: ALKALINE PHOSPHATASE 109 U/L (46-116); ALT/SGPT 33 U/L (7.0-40); AST/SGOT 20 U/L (<34); BILIRUBIN,TOTAL 0.6 MG/DL (0.3-1.2); BLOOD UREA NITROGEN 20 MG/DL (9-23); CALCIUM LEVEL 9.3 MG/DL (8.3-10.6); CARBON DIOXIDE LEVEL 32 MMOL/L (20-31); CHLORIDE LEVEL 100 MMOL/L (98-107); CREATININE FOR GFR 0.81 MG/DL (0.55-1.30); GLOMERULAR FILTRATION RATE > 60.0 (>39); GLUCOSE, FASTING 85 MG/DL (74-106); POTASSIUM SERUM 3.8 MMOL/L (3.5-5.1); SODIUM LEVEL 141 MMOL/L (136-145)
== END ==
LOC: M RAD 10:18
PROVIDERS: ATTEND Podiatrist
DX: Z01.818 Encounter for other preprocedural examination (principal); G57.62 Lesion of plantar nerve, left lower limb; M79.672 Pain in left foot

== ENCOUNTER → 2022-08-13 | Outpatient (CLI) | payer MEDICARE, OTHER | LOC: M LABSMTC 09:20 | PROVIDERS: ATTEND Podiatrist | DX: Z11.52 Encounter for screening for COVID-19 (principal) ==

== ENCOUNTER 2022-08-17 08:39 | Day surgery (SDC) | payer MEDICARE, OTHER ==
[~2022-08-17] VITALS: Ht 157.5 cm; Wt 67.6 kg
[~2022-08-17 08:39] MED LIST changes: +BUPIVACAINE HCL 0.5% 30ML VIAL As Ordered ONE; +GENTAMICIN SULF 80MG/2ML VIAL As Ordered ONE; +LIDOCAINE 1% MDV 20ML VIAL As Ordered ONE; +ceFAZolin SOD 2 GM in IV 1 EA IV ONE
[2022-08-17] MEDS ORDERED: LR 1,000 ML IV SCH (09:40)
[2022-08-17] MEDS ORDERED: LIDOCAINE 2% 100MG/5ML SDV (FOR ANES.) As Ordered ONE (10:15)
[2022-08-17] MEDS ORDERED: propofoL 200 MG/20 ML VIAL As Ordered ONE ×2 (10:15→11:25)
[2022-08-17] MEDS ORDERED: MIDAZOLAM INJ 2MG/2ML VIAL As Ordered ONE (10:15)
[2022-08-17] MEDS ORDERED: GENTAMICIN SULF 80MG/2ML VIAL As Ordered ONE (10:19)
[2022-08-17] MEDS ORDERED: LIDOCAINE 2% MDV 20ML VIAL As Ordered ONE (10:20)
[2022-08-17] MEDS ORDERED: BUPIVACAINE HCL 0.5% 30ML VIAL As Ordered ONE (10:20)
[2022-08-17] MEDS ORDERED: KETAMINE HCL 200MG/20ML VIAL As Ordered ONE (12:01)
[2022-08-17 13:18] VITALS: BP 122/57
== END 2022-08-17 13:46 | disposition home or self-care (01) ==
LOC: M SDC 08:39
PROVIDERS: ATTEND Podiatrist
DX: G57.62 Lesion of plantar nerve, left lower limb (principal); M79.672 Pain in left foot; T84.84XA Pain due to internal orthopedic prosthetic devices, implants and grafts, initial encounter; T84.428A Displacement of other internal orthopedic devices, implants and grafts, initial encounter; E03.9 Hypothyroidism, unspecified; E78.5 Hyperlipidemia, unspecified; J30.2 Other seasonal allergic rhinitis; J45.909 Unspecified asthma, uncomplicated; K21.9 Gastro-esophageal reflux disease without esophagitis; Z79.899 Other long term (current) drug therapy
CPT/HCPCS: 20680; 28080; 88304; J0690; J1100; J1580; J2250

== ENCOUNTER → 2023-01-15 | Outpatient (CLI) | payer MEDICARE, OTHER ==
[~2023-01-15] MED LIST changes: -BUPIVACAINE HCL 0.5% 30ML VIAL As Ordered ONE; -GENTAMICIN SULF 80MG/2ML VIAL As Ordered ONE; -LIDOCAINE 1% MDV 20ML VIAL As Ordered ONE; +MONT-5 PO; -SING10TA32 PO; -ceFAZolin SOD 2 GM in IV 1 EA IV ONE
[2023-01-15 09:49] LABS: HEMATOCRIT 46.8 % (36.0-47.0); HEMOGLOBIN 15.1 g/dl (12.0-15.5); MEAN CORPUSCULAR HEMOGLOBIN 30.6 pg (27.0-33.0); MEAN CORPUSCULAR HGB CONC 32.3 g/dl (32.0-36.5); MEAN CORPUSCULAR VOLUME 94.7 fl (80.0-96.0); PLATELET COUNT, AUTOMATED 241 10^3/uL (150-450); RED BLOOD COUNT 4.94 10^6/uL (4.00-5.40)
[2023-01-15 10:06] LABS: HEMOGLOBIN A1c 5.4 % (4.0-6.0)
[2023-01-15 10:08] LABS: CREATININE, URINE 67.1 MG/DL
[2023-01-15 10:09] LABS: MALB URINE SIEMENS < 3.0 MG/L; MAU/CREAT RATIO 4.4 MCG/MG (0.0-30.0)
[2023-01-15 10:20] LABS: C REACTIVE PROTEIN QUANTITATIV < 0.40 MG/DL (<1.0)
[2023-01-15 10:21] LABS: ALBUMIN 3.8 G/DL (3.2-5.2); ALKALINE PHOSPHATASE 148 U/L (46-116); ALT/SGPT 42 U/L (7.0-40); AST/SGOT 23 U/L (<34); BILIRUBIN,TOTAL 0.5 MG/DL (0.3-1.2); BLOOD UREA NITROGEN 13 MG/DL (9-23); CARBON DIOXIDE LEVEL 31 MMOL/L (20-31); CHLORIDE LEVEL 105 MMOL/L (98-107); CHOLESTEROL LEVEL 209 MG/DL (<200); CHOLESTEROL RISK RATIO 2.93 (<5); FREE T4 1.25 NG/DL (0.89-1.76); GLOMERULAR FILTRATION RATE > 60.0 (>39); GLUCOSE, FASTING 88 MG/DL (74-106); HDL CHOLESTEROL 71.3 MG/DL (>40); LDL CHOLESTEROL 119.1 MG/DL (<100); NON-HDL-C 137.7 MG/DL; POTASSIUM SERUM 4.2 MMOL/L (3.5-5.1); SODIUM LEVEL 144 MMOL/L (136-145); THYROID STIMULATING HORMONE 2.159 uIU/ML (0.55-4.78); TOTAL PROTEIN 6.7 G/DL (5.7-8.2); TRIGLYCERIDES LEVEL 93 MG/DL (<150); VITAMIN B12 LEVEL 480 PG/ML (211-911)
[2023-01-15 10:22] LABS: TOTAL 25(OH) VITAMIN D 74.8 NG/ML (20.0-100.0)
== END ==
LOC: M WUC 08:34
PROVIDERS: ATTEND Internal Medicine Hematology
DX: E78.00 Pure hypercholesterolemia, unspecified (principal); B02.9 Zoster without complications; E03.9 Hypothyroidism, unspecified; K21.9 Gastro-esophageal reflux disease without esophagitis

== ENCOUNTER → 2023-03-05 | Outpatient (CLI) | payer MEDICARE, OTHER ==
[2023-03-05 18:16] LABS: ALBUMIN 4.3 G/DL (3.2-5.2); ALKALINE PHOSPHATASE 135 U/L (46-116); ALT/SGPT 54 U/L (7.0-40); AST/SGOT 34 U/L (<34); BILIRUBIN,DIRECT 0.2 MG/DL (<0.4); BILIRUBIN,TOTAL 0.6 MG/DL (0.3-1.2); BLOOD UREA NITROGEN 14 MG/DL (9-23); CALCIUM LEVEL 9.3 MG/DL (8.3-10.6); CARBON DIOXIDE LEVEL 27 MMOL/L (20-31); CHLORIDE LEVEL 103 MMOL/L (98-107); CREATININE FOR GFR 0.66 MG/DL (0.55-1.30); GLOMERULAR FILTRATION RATE > 60.0 (>39); GLUCOSE, FASTING 95 MG/DL (74-106); POTASSIUM SERUM 4.1 MMOL/L (3.5-5.1); SODIUM LEVEL 141 MMOL/L (136-145); TOTAL PROTEIN 6.9 G/DL (5.7-8.2)
== END ==
LOC: M WUC 11:26
PROVIDERS: ATTEND Internal Medicine Gastroenterology
DX: R79.89 Other specified abnormal findings of blood chemistry (principal)

== ENCOUNTER 2023-05-27 09:55 | Day surgery (SDC) | payer MEDICARE, OTHER ==
[~2023-05-27] VITALS: Ht 157.5 cm; Wt 62.1 kg
[~2023-05-27 09:55] MED LIST changes: +AMOX875T PO; +AZEL23SP; +NS 1,000 ML IV ONE; +RA T500C2 PO
[2023-05-27] MEDS ORDERED: propofoL 200 MG/20 ML VIAL As Ordered ONE ×2 (11:44→11:56)
[2023-05-27 12:04] VITALS: TEMP 97.9
[2023-05-27 12:20] VITALS: BP 115/60; O2SAT 96
== END 2023-05-27 12:30 | disposition home or self-care (01) ==
LOC: M OPP 09:55
PROVIDERS: ATTEND Internal Medicine Gastroenterology
DX: D12.0 Benign neoplasm of cecum (principal); D12.2 Benign neoplasm of ascending colon; D12.3 Benign neoplasm of transverse colon; E78.5 Hyperlipidemia, unspecified; E03.9 Hypothyroidism, unspecified; K76.9 Liver disease, unspecified; Z86.010 Personal history of colon polyps; Z88.1 Allergy status to other antibiotic agents; Z91.09 Other allergy status, other than to drugs and biological substances

== ENCOUNTER → 2023-07-22 | Outpatient (CLI) | payer MEDICARE, OTHER ==
[~2023-07-22] MED LIST changes: -NS 1,000 ML IV ONE
[2023-07-22 14:01] LABS: HEMATOCRIT 43.8 % (36.0-47.0); HEMOGLOBIN 14.4 g/dl (12.0-15.5); MEAN CORPUSCULAR HEMOGLOBIN 30.5 pg (27.0-33.0); MEAN CORPUSCULAR HGB CONC 32.9 g/dl (32.0-36.5); MEAN CORPUSCULAR VOLUME 92.8 fl (80.0-96.0); PLATELET COUNT, AUTOMATED 181 10^3/uL (150-450); RED BLOOD COUNT 4.72 10^6/uL (4.00-5.40); WHITE BLOOD COUNT 5.3 10^3/uL (4.0-10.0)
[2023-07-22 14:17] LABS: MALB URINE SIEMENS < 3.0 MG/L; MAU/CREAT RATIO 18.7 MCG/MG (0.0-30.0)
[2023-07-22 14:20] LABS: ALBUMIN 3.9 G/DL (3.2-5.2); ALKALINE PHOSPHATASE 111 U/L (46-116); ALT/SGPT 32 U/L (7.0-40); AST/SGOT 23 U/L (<34); BILIRUBIN,TOTAL 0.5 MG/DL (0.3-1.2); BLOOD UREA NITROGEN 11 MG/DL (9-23); CALCIUM LEVEL 9.1 MG/DL (8.3-10.6); CARBON DIOXIDE LEVEL 30 MMOL/L (20-31); CHLORIDE LEVEL 105 MMOL/L (98-107); CHOLESTEROL LEVEL 185 MG/DL (<200); CHOLESTEROL RISK RATIO 2.52 (<5); CREATININE FOR GFR 0.65 MG/DL (0.55-1.30); GLOMERULAR FILTRATION RATE > 60.0 (>39); GLUCOSE, FASTING 95 MG/DL (74-106); HDL CHOLESTEROL 73.2 MG/DL (>40); LDL CHOLESTEROL 76.4 MG/DL (<100); NON-HDL-C 111.8 MG/DL; POTASSIUM SERUM 4.1 MMOL/L (3.5-5.1); SODIUM LEVEL 140 MMOL/L (136-145); TRIGLYCERIDES LEVEL 177 MG/DL (<150)
[2023-07-22 14:21] LABS: FREE T4 1.33 NG/DL (0.89-1.76); THYROID STIMULATING HORMONE 1.399 uIU/ML (0.55-4.78)
[2023-07-22 14:22] LABS: TOTAL 25(OH) VITAMIN D 78.8 NG/ML (20.0-100.0); VITAMIN B12 LEVEL 538 PG/ML (211-911)
[2023-07-22 14:56] LABS: HEMOGLOBIN A1c 5.3 % (4.0-6.0)
== END ==
LOC: M PLALAB 11:32
PROVIDERS: ATTEND Internal Medicine Hematology
DX: E78.2 Mixed hyperlipidemia (principal); Z79.899 Other long term (current) drug therapy

== ENCOUNTER → 2023-08-14 | Outpatient (CLI) | payer MEDICARE, OTHER ==
[~2023-08-14] MED LIST changes: +PROHANCE 279.3MG/ML 15ML VIAL ONE
== END ==
LOC: M PLAIMG 15:15
PROVIDERS: ATTEND Physician Assistant Medical
DX: K86.2 Cyst of pancreas (principal); K76.0 Fatty (change of) liver, not elsewhere classified; K76.89 Other specified diseases of liver
CPT/HCPCS: 74183; A9576

== ENCOUNTER → 2023-09-19 | Outpatient (CLI) | payer MEDICARE, OTHER ==
[~2023-09-19] MED LIST changes: -PROHANCE 279.3MG/ML 15ML VIAL ONE
[2023-09-19 14:33] LABS: BASO % 0.4 % (0.0-1.0); EOS # 0.1 10^3/uL (0.0-0.5); EOS % 1.7 % (0.0-3.0); HEMATOCRIT 46.5 % (36.0-47.0); HEMOGLOBIN 15.4 g/dl (12.0-15.5); LYMPH # 1.3 10^3/uL (1.5-5.0); LYMPH % 25.3 % (24.0-44.0); MEAN CORPUSCULAR HEMOGLOBIN 30.8 pg (27.0-33.0); MEAN CORPUSCULAR HGB CONC 33.1 g/dl (32.0-36.5); MONO # 0.8 10^3/uL (0.0-0.8); MONO % 16.2 % (2.0-8.0); NEUTROPHILS # 2.9 10^3/uL (1.5-8.5); NEUTROPHILS % 55.6 % (36.0-66.0); PLATELET COUNT, AUTOMATED 233 10^3/uL (150-450); WHITE BLOOD COUNT 5.2 10^3/uL (4.0-10.0)
[2023-09-19 15:00] LABS: BLOOD UREA NITROGEN 15 MG/DL (9-23); CALCIUM LEVEL 9.3 MG/DL (8.3-10.6); CARBON DIOXIDE LEVEL 31 MMOL/L (20-31); CHLORIDE LEVEL 104 MMOL/L (98-107); CREATININE FOR GFR 0.73 MG/DL (0.55-1.30); GLOMERULAR FILTRATION RATE > 60.0 (>39); GLUCOSE, FASTING 104 MG/DL (74-106); SODIUM LEVEL 139 MMOL/L (136-145)
== END ==
LOC: M PLALAB 10:31
PROVIDERS: ATTEND Internal Medicine Hematology
DX: Z01.818 Encounter for other preprocedural examination (principal); Z79.899 Other long term (current) drug therapy

== ENCOUNTER → 2024-04-16 | Outpatient (REF) | payer MEDICARE, OTHER ==
[2024-04-16 19:31] LABS: ATYPICAL LYMPH 12 % (0-5); EOSINOPHILS 1 % (0-3); LYMPHOCYTES 14 % (16-44); MONOCYTES 10 % (0-5); NEUTROPHILS 63 % (28-66)
[2024-04-16 19:32] LABS: PLATELET ESTIMATE NORMAL (NORMAL)
== END ==
LOC: M LAB REF 16:31
PROVIDERS: ATTEND Internal Medicine
DX: D72.9 Disorder of white blood cells, unspecified (principal)

== ENCOUNTER → 2024-05-06 | Outpatient (REF) | payer MEDICARE, OTHER ==
[2024-05-06 14:48] LABS: BASO % 0.4 % (0.0-1.0); EOS # 0.1 10^3/uL (0.0-0.5); EOS % 1.4 % (0.0-3.0); HEMATOCRIT 43.3 % (36.0-47.0); HEMOGLOBIN 14.3 g/dl (12.0-15.5); LYMPH # 1.2 10^3/uL (1.5-5.0); LYMPH % 23.6 % (24.0-44.0); MEAN CORPUSCULAR HEMOGLOBIN 30.3 pg (27.0-33.0); MEAN CORPUSCULAR VOLUME 91.7 fl (80.0-96.0); MONO % 19.5 % (2.0-8.0); NEUTROPHILS # 2.7 10^3/uL (1.5-8.5); NEUTROPHILS % 54.5 % (36.0-66.0); PLATELET COUNT, AUTOMATED 274 10^3/uL (150-450); RED BLOOD COUNT 4.72 10^6/uL (4.00-5.40); WHITE BLOOD COUNT 4.9 10^3/uL (4.0-10.0)
[2024-05-08 14:12] LABS: EBV VIRAL CAPSID AG IGM < 36.00 U/mL (<36.00)
== END ==
LOC: M LAB REF 13:34
PROVIDERS: ATTEND Internal Medicine
DX: D72.821 Monocytosis (symptomatic) (principal); R53.83 Other fatigue

== ENCOUNTER → 2024-05-26 | Outpatient (CLI) | payer MEDICARE, OTHER | LOC: M PLAIMG 10:01 | PROVIDERS: ATTEND Allergy & Immunology | DX: R43.8 Other disturbances of smell and taste (principal) ==

== ENCOUNTER → 2024-07-14 | Outpatient (CLI) | payer MEDICARE, OTHER ==
[~2024-07-14] MED LIST changes: -ADV250INH INH; +ADVA1AER9 INH
== END ==
LOC: M PLAIMG 10:54
PROVIDERS: ATTEND Internal Medicine
DX: R51.9 Headache, unspecified (principal); R90.82 White matter disease, unspecified; Z98.41 Cataract extraction status, right eye; Z98.42 Cataract extraction status, left eye; J32.0 Chronic maxillary sinusitis

== ENCOUNTER → 2024-08-10 | Outpatient (CLI) | payer MEDICARE, OTHER | LOC: M WUC 10:33 | PROVIDERS: ATTEND Student in an Organized Health Care Education/Training Program | DX: M25.531 Pain in right wrist (principal); M19.031 Primary osteoarthritis, right wrist ==

== ENCOUNTER → 2024-08-18 | Outpatient (CLI) | payer MEDICARE, OTHER | LOC: M WUC 10:04 | PROVIDERS: ATTEND Physician Assistant | DX: R05.9 Cough, unspecified (principal); R06.02 Shortness of breath ==

== ENCOUNTER → 2024-08-31 | Outpatient (CLI) | payer MEDICARE, OTHER | LOC: M RAD 14:31 | PROVIDERS: ATTEND Internal Medicine | DX: R05.9 Cough, unspecified (principal); R60.0 Localized edema ==

== ENCOUNTER → 2024-10-06 | Outpatient (CLI) | payer MEDICARE, OTHER ==
[~2024-10-06] MED LIST changes: +PROHANCE 279.3MG/ML 15ML VIAL ONE; +PROHANCE 279.3MG/ML 5ML VIAL ONE
== END ==
LOC: M PLAIMG 09:58
PROVIDERS: ATTEND Physician Assistant Medical
DX: K86.2 Cyst of pancreas (principal); K76.0 Fatty (change of) liver, not elsewhere classified; K76.89 Other specified diseases of liver
CPT/HCPCS: 74183; A9576

== ENCOUNTER → 2025-03-17 | Outpatient (CLI) | payer MEDICARE, OTHER ==
[~2025-03-17] MED LIST changes: -PROHANCE 279.3MG/ML 15ML VIAL ONE; -PROHANCE 279.3MG/ML 5ML VIAL ONE; -RA T500C2 PO; +TURM500C10 PO
[2025-03-17 14:32] LABS: ALT/SGPT 30 U/L (7.0-40); AST/SGOT 21 U/L (<34); CALCIUM LEVEL 9.1 MG/DL (8.3-10.6); CARBON DIOXIDE LEVEL 29 MMOL/L (20-31); CHLORIDE LEVEL 104 MMOL/L (98-107); CREATININE FOR GFR 0.69 MG/DL (0.55-1.30); GLOMERULAR FILTRATION RATE > 90.0 (>39); POTASSIUM SERUM 4.0 MMOL/L (3.5-5.1); SODIUM LEVEL 140 MMOL/L (136-145)
== END ==
LOC: M WUC 08:11
PROVIDERS: ATTEND Internal Medicine Gastroenterology
DX: R79.89 Other specified abnormal findings of blood chemistry (principal)

== ENCOUNTER → 2025-03-25 | Outpatient (REF) | payer MEDICARE, OTHER | LOC: M LAB REF 11:54 | PROVIDERS: ATTEND Physician Assistant Medical | DX: J06.9 Acute upper respiratory infection, unspecified (principal) ==